=== PATIENT | female | born 1985 | race Two or more races ===

== ENCOUNTER 2024-01-19 10:52 | Emergency (ER) | payer OTHER, SELFPAY ==
[2024-01-19 11:08] VITALS: BP 133/88
--- NOTE | 2024-01-19 11:42 | ED.GENMED ---
History of Present Illness
General
Chief Complaint: Breathing Problem
Source: patient
Exam Limitations: none
Time Seen by Provider: 01/19/24 11:41
Nursing documentation reviewed up to this point in time: agreed with
History of Present Illness
History of Present Illness:
38-year-old female with history of migraines, states she is here for shortness of breath, dry cough, sore throat and body aches. 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 She states she felt well 2 days ago, yesterday developed
a sore throat, dry cough and body aches. Today she awakened at 5:30 AM feeling short of breath. She denies fever, N/V/C/D. Her is sick with a cough and congestion.
She has a headache, generalized, improved after turning the lights out. Declined when offered Tylenol or Ibuprofen; 'I don't like to take medicine.'
They both went to urgent care this morning prior to coming here and both tested negative for COVID.
Past History
Past History
ED Past Medical History: Other (Migraines, endometriosis)
ED Past Surgical History: Gynecological
Review of Systems
Review of Systems
Allergies reviewed?: Yes
All Other Systems: ROS reviewed and negative except as documented in HPI and ROS
Constitutional: Denies fever or chills
EENT: Reports sore throat
Respiratory: Reports cough and trouble breathing (SOB)
Cardiac: Denies chest pain, diaphoresis or palpitations
ABD/GI: Denies abdominal pain, nausea, vomiting, diarrhea or anorexia
: Denies dysuria, frequency or difficulty voiding
Musculoskeletal: Reports other (general body aches); Denies edema
Skin: Reports no symptoms
Neurological: Reports headache; Denies dizzy, weakness or numbness
Phy Exam
Physical Exam
Physical Exam:
GENERAL: No acute distress. A&Ox3.
CONSTITUTIONAL: Afebrile.
EYES: PERRL, conjunctivae normal
Neck: Supple
ENMT: moist mucus membranes, Pharynx nl
RESPIRATORY: Regular respirations, nonlabored, lungs clear. Occasional dry cough
CARDIOVASCULAR: Regular rate and rhythm, no murmurs, no rubs.
GI: Soft, nontender, normal BS
MUSCULOSKELETAL: Moves with ease. Well perfused.
SKIN: Warm, dry, pink
PSYCH: Normal mood and affect. Well kept, interactive and appropriate
NEUROLOGIC: Awake, alert and oriented. No focal neurological deficits
Course
Orders/Labs/Results
Orders:
Orders
01/19/24 11:12
ECG [Electrocardiogram (*1)] Urgent
Reason for Study: Shortness of Breath
EKG- Treatment ONCE
01/19/24 12:08
Test Result ONCE
01/19/24 12:20
Complete Blood Count/With Diff Urgent
Comprehensive Metabolic Panel Urgent
D-Dimer Urgent
HCG, Serum Qualitative Screen Urgent
Rapid Strep Group A Urgent
BUFFY Source: Throat/Pharynx
Specimen Description:
Date Specimen was Collected: 01/19/24
Time Specimen was Collected: 12:18
Throat Culture [Throat Culture, Comprehensive] Urgent
BUFFY Source: Throat/Pharynx
Specimen Description:
Date Specimen was Collected: 01/19/24
Time Specimen was Collected: 12:18
01/19/24 14:05
CR Chest - 2 Views Urgent
Comment:
Reason For Exam: SOB
Abnormal Lab Results
01/19/24
12:20
RBC 4.01 L 10^6/uL
(4.20-5.40)
Hgb 11.9 L g/dL
(12.0-16.0)
Hct 35.6 L %
(37.0-47.0)
Monocytes % 11.5 H %
(1.7-9.3)
Chloride 108 H mmol/L
(98-107)
AST 38 H U/L
(14-36)
Total Protein 6.2 L g/dl
(6.3-8.2)
01/19/24 12:20
01/19/24 12:20
Vital Signs
Initial and Last Documented VS:
Initial Vital Signs
Temp Pulse Resp BP Pulse Ox
98 F 64 18 133/88 100
01/19/24 11:08 01/19/24 11:08 01/19/24 11:08 01/19/24 11:08 01/19/24 11:08
Last Documented Vital Signs
Temp Pulse Resp BP Pulse Ox
98 F 66 12 115/82 100
01/19/24 11:08 01/19/24 16:07 01/19/24 16:07 01/19/24 16:07 01/19/24 16:07
MDM/Problems Addressed
Differential Diagnosis Includes:
PE, Covid, bronchitis, PNA
MDM/Problems Addressed:
38-year-old female with history of migraines, states she is here for shortness of breath, dry cough, sore throat and body aches. 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 She states she felt well 2 days ago, yesterday developed
a sore throat, dry cough and body aches. Today she awakened at 5:30 AM feeling short of breath. She denies fever, N/V/C/D. Her is sick with a cough and congestion.
She has a headache, generalized, improved after turning the lights out. Declined when offered Tylenol or Ibuprofen; 'I don't like to take medicine.'
They both went to urgent care this morning prior to coming here and both tested negative for COVID.
with similar symptoms is being treated with an antibiotic and states he is much improved
Afebrile, NAD
EKG sinus bradycardia, normal QTc
1:30 PM:
CBC with no clinically significant abnormality
CMP normal
Rapid strep negative
D dimer WNL
3:15 PM:
Chest x-ray: Radiology report read: Unremarkable chest.
Final dx: Acute bronchitis
Rx for Jae sent to her pharmacy.
01/20/24 filled out work paper and faxed it per patient request
*Critical Care Note
Total Time (30-74mins, 75-104mins- exclusive of procedures): Not Applicable
ED Attending Note
-
Portions of this chart may have been created with voice recognition software.� Occasional wrong word or��sound alike� substitutions may have occurred due to the inherent limitations of voice recognition software.
Discharge Plan
Departure
Patient Disposition: Home (Routine Discharge)
Date of Disposition: 01/19/24
Time of Disposition: 15:17
Patient with high blood pressure during this ER visit?: No
Condition: Good
Discharge Problem:
Acute bronchitis
Instructions: Acute Bronchitis, Adult (DC)
Prescriptions:
New
azithromycin [Zithromax] 250 mg tablet
250 mg PO DAILY Qty: 6 0RF
Rx Instructions:
Take 500 mg day one, then 250 mg days 2-5
Referrals:
NONE,* [Family Provider] -
Stand Alone Forms: Return to Work
Activity Restrictions/Additional Instructions:
As we discussed, I sent a prescription to your pharmacy for the antibiotic azithromycin.
Interventions
Interventions:
*Risk Screen - Suicide Last Done: 01/19/24 11:08
*General Assessment Last Done: 01/19/24 11:08
*Neglect/Abuse Screening Last Done: 01/19/24 11:08
ED- Fall Risk Assessment Last Done: 01/19/24 12:15
*ED COVID-19 Vaccine History Last Done: 01/19/24 12:15
*Nursing Disposition Last Done: 01/19/24 16:07
ED- Cardiac Assessment Last Done: 01/19/24 12:15
ED- Pulmonary Assessment Last Done: 01/19/24 12:15
Discharge Date and Time
Discharge Date/Time: 01/19/24 16:09
Print Language: [place]
[2024-01-19 12:15] VITALS: BMI 33.6
[2024-01-19 12:26] VITALS: BP 124/91
[2024-01-19 12:35] LABS: % Eosinophils 2.9 % (0-6); % Immature Granulocytes 0.4 % (0-0.5); % Lymphocytes 26.6 % (20.5-51.1); % Monocytes 11.5 % (1.7-9.3); % Neutrophils 57.6 % (42.2-75.2); Absolute Basophils 0.1 10^3/uL (0-0.2); Absolute Eosinophils 0.1 10^3/uL (0-0.7); Absolute Lymphocytes 1.3 10^3/uL (1.2-3.4); Absolute Monocytes 0.6 10^3/uL (0.1-0.6); Absolute Neutrophils 2.8 10^3/uL (1.4-6.5); Hematocrit 35.6 % (37.0-47.0); Hemoglobin 11.9 g/dL (12.0-16.0); Mean Corp Hgb Conc. 33.4 g/dL (33.0-37.0); Mean Corpuscular Hgb 29.7 pg (27.0-31.0); Mean Corpuscular Volume 88.8 fL (81.0-99.0); Mean Platelet Volume 9.9 fL (7.4-10.4); Nucleated Red Blood Cells % 0 %; Platelet Count 293 10^3/uL (130-400); Red Blood Cell Count 4.01 10^6/uL (4.20-5.40); Red Cell Dist. Width 12.8 % (11.5-14.5); White Blood Cell Count 4.9 10^3/uL (4.8-10.8)
[2024-01-19 12:48] LABS: ALT (SGPT) 32 U/L (0-35); AST (SGOT) 38 U/L (14-36); Albumin 3.8 g/dl (3.5-5.0); Alkaline Phosphatase 74 U/L (38-126); Blood Urea Nitrogen 8 mg/dl (7-17); Calcium 9.1 mg/dl (8.4-10.2); Carbon Dioxide 24 mmol/L (22-30); Chloride 108 mmol/L (98-107); Estimated Creatinine Clearance > 125 ml/min; Glucose 87 mg/dl (70-99); Potassium 3.9 mmol/L (3.5-5.1); Sodium 137 mmol/L (135-145); Total Bilirubin 0.4 mg/dl (0.2-1.3); Total Protein 6.2 g/dl (6.3-8.2); eGFR > 60.00
[2024-01-19 12:50] LABS: D-Dimer < 0.27 ug/mlFEU (0.00-0.50)
[2024-01-19 13:00] VITALS: BP 113/78
[2024-01-19 14:00] VITALS: BP 108/74
[2024-01-19 15:18] LABS: HCG, Serum Qualitative Screen Negative
[2024-01-19 16:07] VITALS: BP 115/82
== END 2024-01-19 16:09 | disposition home or self-care (01) ==
LOC: EMR 10:52
PROVIDERS: Registered Nurse; EMERGENCY PHYSICIAN Emergency Medicine
DX: J20.9 Acute bronchitis, unspecified (principal)
CPT/HCPCS: 99283; 71046; 80053; 84703; 85025; 85379; 87070; 87880; 93005